=== PATIENT | female | born 1980 | race Caucasian/White ===

== ENCOUNTER 2017-01-07 13:55 | Emergency (ER) | payer OTHER ==
[~2017-01-07] VITALS: Ht 160 cm; Wt 86.2 kg
[2017-01-07 14:13] VITALS: BP 173/98
[2017-01-07] MEDS ORDERED: IBUPROFEN 600 MG TAB PO ONE (16:15)
== END 2017-01-07 16:22 | disposition home or self-care (01) ==
LOC: ER 13:55
DX: L02.214 Cutaneous abscess of groin (principal); Z90.49 Acquired absence of other specified parts of digestive tract
CPT/HCPCS: 10060

== ENCOUNTER 2017-01-09 09:17 | Emergency (ER) | payer OTHER ==
[~2017-01-09] VITALS: Ht 160 cm; Wt 86.2 kg
[2017-01-09 09:47] VITALS: BP 154/88
== END 2017-01-09 10:12 | disposition home or self-care (01) ==
LOC: ER 09:17
DX: N76.4 Abscess of vulva (principal); Z48.01 Encounter for change or removal of surgical wound dressing; Z90.49 Acquired absence of other specified parts of digestive tract